=== PATIENT | male | born 1940 | race Caucasian/White ===

== ENCOUNTER 2022-11-03 13:30 | Emergency (ER) | payer MEDICARE, OTHER, SELFPAY ==
[2022-11-03] VITALS (11 sets, daily range): BP systolic 115–126; BP diastolic 76–86; PULSE 72–86; RESP 28; TEMP 35.9; O2SAT 94–97; BMI 34.5
--- NOTE | 2022-11-03 19:43 | ED_ITS ---
HPI - General Adult General Date Seen: 11/03/22 Chief complaint: Allergic Reaction Stated complaint: hives and wheezing recently started steroid Time Seen by Provider: 11/03/22 14:07 Source: patient and RN notes reviewed Mode of arrival: ambulatory Limitations: no limitations History of Present Illness HPI narrative: Patient is an 82-year-old male who presents to the ER on recommendation of the clinic for hives and some wheezing. He tells me that he has a history of bronchitis and recent cough/upper respiratory infection, had been seen in clinic last month and started on an antibiotic which by my review appears to have been a cephalosporin. He had completed that and then presented to clinic again a couple days ago for recheck because he was still coughing. At that time, he was started on prednisone as well as doxycycline, which he has been taking for the past 2 days. Today he broke out in hives, called the clinic and was noted to be wheezing so they recommended that he come here. He took Benadryl on the way, and on arrival here was feeling improved. He has not had any further wheezing, still has the hives although he is less itchy than he was. Nursing reported that he at 1 point was noting some throat swelling, but he does not give me that history. Denies difficulty breathing or swallowing. Denies prior history of antibiotic allergies, but does say that he has had hives in the past, which as best they can tell have been related to maple syrup. He says his cough has been persistent but he thinks overall gradually improving. He does think over the past couple of days he has been feeling better, whether that is due to the steroid or the doxycycline he does not know. He hasa remote smoking history, quit 1983. It is not clear to me that he carries a diagnosis of COPD, though he says that he was treated for chronic bronchitis. He has not run fevers recently. Cough at this point is dry. No chest pain, no significant shortness of breath. Related Data Home Medications Medication Instructions Recorded Confirmed cholecalciferol (vitamin D3) 25 1,000 unit PO DAILY 04/26/22 11/03/22 mcg (1,000 unit) tablet latanoprost 0.005 % eye drops 1 drp ophthalmic (eye) .Bedtime 04/26/22 11/03/22 cefuroxime axetil 500 mg tablet 500 mg PO Q12H 11/03/22 11/03/22 Previous Rx's Medication Instructions Recorded furosemide 20 mg tablet 20 mg PO QAM #90 tabs 10/13/22 lisinopril 20 mg tablet 20 mg PO QDAY #90 tabs 10/13/22 amlodipine 5 mg tablet 5 mg PO DAILY #90 tabs 11/01/22 digoxin 250 mcg (0.25 mg) tablet 250 mcg PO QDAY #90 tabs 11/01/22 metformin 500 mg tablet,extended 1,000 mg PO DAILY #180 tabs 11/01/22 release 24 hr metoprolol succinate 50 mg 50 mg PO BID #180 tabs 11/01/22 tablet,extended release 24 hr omeprazole 20 mg capsule,delayed 20 mg PO DAILY #90 caps 11/01/22 release prednisone 20 mg tablet 20 mg PO BID #14 tabs 11/01/22 simvastatin 20 mg tablet 20 mg PO .Bedtime #90 tabs 11/01/22 warfarin 5 mg tablet 5 mg PO .UD #120 tabs 11/01/22 Allergies Allergy/AdvReac Type Severity Reaction Status Date / Time doxycycline Allergy Severe Hives Verified 11/03/22 19:50 atorvastatin AdvReac Unknown Joint Pain Verified 11/03/22 13:45 Review of Systems Status of ROS: Reports: 10 or more systems reviewed and unremarkable except as noted in History and below [facility] Surgical History Status post cardiac pacemaker procedure Status post carpal tunnel release Status post cataract extraction Status post cholecystectomy Status post coronary artery stent placement Status post tonsillectomy Social History Smoking Status: Former smoker What tobacco products do you use: cigarettes Smoking quit date/years: >15 years ago Do you use any of these nicotine containing products: None Second hand tobacco smoke exposure: No How often do you have a drink containing alcohol: monthly or less AUDIT-C Alcohol total score: 1 Non-prescribed substance use: denies use Exam Narrative: Exam Narrative: Vital signs as noted above. In general, an alert, well-appearing patient. Breathing easily. Head: Normocephalic, atraumatic. Eyes: Pupils are equal reactive. Extraocular movements are full. Conjunctivae are normal. ENT: Mucous membranes are moist. Throat is normal. No edema. Neck: Supple without lymphadenopathy. No stridor. Heart: Regular rate and rhythm. No murmur or rub. Lungs: Clear bilaterally. No increased work of breathing, crackles or wheezes. Abdomen: Soft and nontender. No organomegaly. Extremities: Well perfused. No edema. No calf tenderness. Pulses intact. Neurologic: Patient is alert and oriented to person and place. Speech is fluent. Face is symmetric. Moves all extremities equally. Affect: Normal. Skin: Warm and dry. Well perfused. Large hives scattered over his right abdomen and flank, upper chest. Const: Vital Signs, click to edit/add: Vital Signs - 24 hr 11/03/22 13:41 11/03/22 14:24 11/03/22 14:30 Temperature 96.7 F L Pulse Rate 86 72 Pulse Rate [Pulse Oximeter] 81 Respiratory Rate 28 H Blood Pressure Blood Pressure [Ri ght Upper Arm] 126/76 Pulse Oximetry 95 97 97 Oxygen Delivery Me thod Room Air 11/03/22 14:31 11/03/22 14:45 11/03/22 15:00 Temperature Pulse Rate 81 83 84 Pulse Rate [Pulse Oximeter] Respiratory Rate Blood Pressure 115/86 Blood Pressure [Ri ght Upper Arm] Pulse Oximetry 96 95 94 Oxygen Delivery Me thod 11/03/22 15:02 11/03/22 15:03 11/03/22 15:15 Temperature Pulse Rate 79 84 82 Pulse Rate [Pulse Oximeter] Respiratory Rate Blood Pressure 125/77 Blood Pressure [Ri ght Upper Arm] Pulse Oximetry 96 96 95 Oxygen Delivery Me thod 11/03/22 15:30 11/03/22 15:39 Temperature 96.7 F L Pulse Rate 85 Pulse Rate [Pulse Oximeter] 81 Respiratory Rate 28 H Blood Pressure Blood Pressure [Ri ght Upper Arm] 126/76 Pulse Oximetry 97 Oxygen Delivery Me thod Course Course Hospital Course: In the emergency department, we really just observed. He does not have any a irway or circulatory difficulties, so I did not give epinephrine. We watched him for a couple of hours and he had no further difficulties. His hives did not resolved but they did improve significantly and the itching was largely resolved. For now, I am recommending to him that we just discontinue the doxycycline see how he does on the prednisone alone. He has already completed 1 course of antibiotic and I suspect at this point that his symptoms are more inflammatory rather than bacterial. If in a couple of days he feels like he really needs that extra antibiotic, he can call Dr. Dillard and they can decide what to put him on next, azithromycin might be a reasonable choice to cover for atypicals. In the meantime, will have him continue with the prednisone and I have asked him to keep taking an antihistamine on a scheduled basis for the next couple of days as well, either Benadryl or Zyrtec. Also discussed that if at any time he has recurrence of wheezing, develops any breathing difficulties, swelling, or simply has uncontrolled hives, he can return to the emergency department for re-evaluation. Doxycycline listed as an allergy. Vital Signs Vital signs: Initial Vital Signs Temperature 96.7 F L 11/03/22 13:41 Temperature Source Temporal Artery Scan 11/03/22 13:41 Pulse Rate 81 11/03/22 13:41 Respiratory Rate 28 H 11/03/22 13:41 Blood Pressure 126/76 11/03/22 13:41 Blood Pressure Mean 92 11/03/22 13:41 Blood Pressure Position Sitting 11/03/22 13:41 Pulse Oximetry 95 11/03/22 13:41 Oxygen Delivery Method 11/03/22 13:41 Vital Signs Temperature 96.7 F L 11/03/22 13:41 Pulse Rate 81 11/03/22 13:41 Respiratory Rate 28 H 11/03/22 13:41 Blood Pressure 126/76 11/03/22 13:41 Pulse Oximetry 95 11/03/22 13:41 Oxygen Delivery Method 11/03/22 13:41 Temperature 96.7 F L 11/03/22 15:39 Pulse Rate 81 11/03/22 15:39 Respiratory Rate 28 H 11/03/22 15:39 Blood Pressure 126/76 11/03/22 15:39 Pulse Oximetry 97 11/03/22 15:30 Oxygen Delivery Method 11/03/22 13:41 Discharge Plan Discharge Clinical Impression: Allergic reaction Patient Disposition: Home, Self-Care Condition: Improved Instructions: Antibiotic Medication Allergy (ED) Additional Instructions: Continue prednisone as prescribed. Take an antihistamine such as Benadryl 3 to 4 times a day, or Zyrtec (cetirizine) 1 to 2 times a day for the next 2-3 days. For now, let us see how you do just on the prednisone. If you decide you would like to add an antibiotic back in, you can discuss with Dr. Dillard by phone in a couple of days. Return at any time to the ER for acute worsening symptoms such as difficulty breathing, wheezing, swelling in your mouth or throat. Prescriptions: No Action cholecalciferol (vitamin D3) 25 mcg (1,000 unit) tablet 1,000 unit PO DAILY latanoprost 0.005 % drops 1 drp ophthalmic (eye) .Bedtime lisinopril 20 mg tablet 20 mg PO QDAY Qty: 90 3RF furosemide 20 mg tablet 20 mg PO QAM Qty: 90 3RF prednisone 20 mg tablet 20 mg PO BID Qty: 14 0RF amlodipine 5 mg tablet 5 mg PO DAILY Qty: 90 3RF digoxin 250 mcg (0.25 mg) tablet 250 mcg PO QDAY Qty: 90 3RF metformin 500 mg tablet extended release 24 hr 1,000 mg PO DAILY Qty: 180 3RF metoprolol succinate 50 mg tablet extended release 24 hr 50 mg PO BID Qty: 180 3RF omeprazole 20 mg capsule,delayed release(DR/EC) 20 mg PO DAILY Qty: 90 3RF simvastatin 20 mg tablet 20 mg PO .Bedtime Qty: 90 3RF warfarin 5 mg tablet 5 mg PO .UD Qty: 120 8RF Protocol: Dose Management Condition: Sunday Dose/Route: 5 % Instruction: 1 x 5 % tablet Condition: Sunday Dose/Route: 7.5 % Instruction: 1.5 x 5 % tablets Condition: Sunday Dose/Route: 5 % Instruction: 1 x 5 % tablet Condition: Sunday Dose/Route: 5 % Instruction: 1 x 5 % tablet Condition: Dose/Route: 5 % Instruction: 1 x 5 % tablet Condition: Sunday Dose/Route: 5 % Instruction: 1 x 5 % tablet Condition: Sunday Dose/Route: 5 % Instruction: 1 x 5 % tablet Protocol Text: Adjustment Start Date: Sunday09/15/22 INR Value: 2.6 INR Date: 09/15/22 Recheck Date: 10/15/22 Rx Instructions: [place]ane 7.5 MG, M 5 MG, Tu 7.5 MG, W 5 MG, Th 7.5 MG, F 5 MG, Sa 5 MG cefuroxime axetil 500 mg tablet 500 mg PO Q12H Label Comments: TAKE 1 TABLET BY MOUTH TWICE DAILY Follow Up/Referrals: Tray Duvall MD [Primary Care Provider] - Stand Alone Forms: [employer] Info Instructions
== END 2022-11-03 15:39 | disposition home or self-care (01) ==
PROVIDERS: Emergency Provider Emergency Medicine; PCP Family Medicine
DX: R06.2 Wheezing (principal); T36.95XA Adverse effect of unspecified systemic antibiotic, initial encounter
CPT/HCPCS: 99283; 99284

== ENCOUNTER 2022-11-15 15:31 | Outpatient (CLI) | payer MEDICARE, OTHER, SELFPAY ==
[2022-11-15 14:22] LABS: Chloride* 105 mmol/L (96-114); Potassium* 4.9 mmol/L (3.6-5.1); Sodium* 138 mmol/L (135-149)
[2022-11-15 14:25] LABS: Blood Urea Nitrogen* 21 mg/dL (7-30); Carbon Dioxide* 23 mmol/L (20-32); Cholesterol* 157 mg/dL (90-199); Estimated Glomerular Filt Rate 75 ml/min; Glucose* 153 mg/dL (60-115); Triglycerides* 337 mg/dL (40-149)
[2022-11-15 14:26] LABS: Calcium* 9.2 mg/dL (8.4-10.6); HDL Cholesterol* 34 mg/dL (>=40); LDL Cholesterol Calculated 56 mg/dL (<100)
== END 2022-11-15 15:32 | disposition home or self-care (01) ==
PROVIDERS: PCP Family Medicine; Visit Provider Family Medicine
DX: I10 Essential (primary) hypertension (principal); E78.5 Hyperlipidemia, unspecified
CPT/HCPCS: 80048; 80061

== ENCOUNTER 2023-01-30 12:09 | Outpatient (CLI) | payer MEDICARE, OTHER, SELFPAY | END 2023-01-30 12:10 | disposition home or self-care (01) | PROVIDERS: PCP Family Medicine; Visit Provider Family Medicine | DX: R19.7 Diarrhea, unspecified (principal) | CPT/HCPCS: 80053; 83690; 85651 ==

== ENCOUNTER 2023-02-01 09:13 | Outpatient (CLI) | payer MEDICARE, OTHER, SELFPAY | END 2023-02-01 09:14 | disposition home or self-care (01) | LOC: NFLDREF 21:16 | PROVIDERS: PCP Family Medicine; Referring Provider Family Medicine; Visit Provider Family Medicine | DX: R19.7 Diarrhea, unspecified (principal) | CPT/HCPCS: 87045; 87046; 87427; 87493 ==

== ENCOUNTER 2023-12-03 12:42 | Outpatient (CLI) | payer MEDICARE, OTHER, SELFPAY ==
--- OUTSIDE RECORDS SUMMARY | 2023-12-03 12:49 | XMS_ITS | Encounter Summary ---
Author Name Unknown Organization [facility] Address [address] [place] [address] Care Team Providers Care Video Systems Engineer Name Role Phone Unavailable Primary Care Provider Naviabl e Encounter Details Date Type Department Care Team (Latest Contact Info) Description 01/18/2023 10:15 AM CDT - 01/18/2023 11:59 PM CDT Hospital Encounter Department of Cardiovascular Diseases in [place], [place] [address] [place] [phone] Yung Celis M.D. [address] [phone] Aftercare Cardiac Pacemaker Discharge Disposition: Home or Self Care Social History Tobacco Use Types Packs/Day Years Used Date Smoking Tobacco: Never Assessed Nutrition Answer Date Recorded Nutrition: EVOO Fat Source Unknown 12/21 Nutrition: Servings of Fruits/Vegetables per Day Not on file 12/21/2020 Dental Answer Date Recorded Dental: Regular Dentist Unknown 12/21/19 21 Sex and Gender Information Value Date Recorded Sex Assigned at Not on file Gender Identity Not on file Sexual Orientation Not on file documented as of this encounter Plan of Treatment Not on file documented as of this encounter Procedures Procedure Name Priority Date/Time Associated Diagnosis Comments PACER DUAL CHAMBER INTERROGATION WITH PROGRAMMING Routine 01/18/2023 3:04 PM CDT Aftercare Cardiac Pacemaker documented in this encounter Results * PACER DUAL CHAMBER INTERROGATION WITH PROGRAMMING (01/18/2023 3:04 PM CDT) Narrative CV OPTIMA - 01/23/2023 8:20 AM CDT This study was read by an external provider and scanned to the patient's chart. Please launch the scanned document link to view the full report. Yung Celis M.D. CV IMPLANTABLE CARDI AC DEVICE CV OPTIMA NA documented in this encounter Visit Diagnoses Diagnosis Aftercare Cardiac Pacemaker documented in this encounter
--- OUTSIDE RECORDS SUMMARY | 2023-12-03 12:49 | XMS_ITS | Referral Summary ---
Author Name Unknown Organization [facility] Address [address] [place] [address] Care Team Providers Care Stone Crusher Operator Name Role Phone Unavailable Primary Care Provider Unavailabl e Source Comments Patient records contain information from all sites at [facility]. For routine questions regarding patient records, call [phone] during business hours, M-F 8:00 AM - 5:00 PM Central Time. Record requests for emergency care only can be directed to [phone] at any time.[facility] Social History Tobacco Use Types Packs/Day Years [...] on file Sexual Orientation Not on file Plan of Treatment Not on file
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
--- OUTSIDE RECORDS SUMMARY | 2023-12-03 12:49 | XMS_ITS | Clinical Summary ---
Author Name Unknown Organization [facility] Address [address] [place] [address] Care Team Providers Care Computer Technical Support Specialist Name Role Phone Unavailable Primary Care Provider Unavailabl e Source Comments Patient records contain information from all sites at [facility]. For routine questions regarding patient records, call [phone] during business hours, M-F 8:00 AM - 5:00 PM Central Time. Record requests for emergency care only can be directed to [phone] at any time.[facility] Social History Tobacco Use Types Packs/Day [...] Orientation Not on file Plan of Treatment Health Maintenance Due Date Last Done Comments Hepatitis B Vaccines (1 of 3 - Risk 3-dose series) 2000 Zoster Vaccines (2 of 3) 12/02/2010 10/07/2010 Depression Screening (Annual PHQ-2) 10/29/2023 Fall Risk Screen (Annual) 10/29/2023 DTaP,Tdap,and Td Vaccines (2 - Td or Tdap) 12/12/2026 12/12/2016, 08/07/2006 Pneumococcal vaccine (65+ years) Completed 11/10/2015, 12/20/2010, 12/15/2003 COVID-19 Vaccine Completed 08/28/2023, , 09/08/2021, Additional history exists Influenza Vaccine Completed 08/28/2023, , 08/04/2021, Additional history exists
--- OUTSIDE RECORDS SUMMARY | 2023-12-03 12:49 | XMS_ITS ---
Author Name Unknown Organization [facility] Address [address] [place] [address] Care Team Providers Care Neuroscience Director Na Name Role Phone Unavailable Unavailable Unavailable Surgery Details Not on file Complications Check Surgery Details section. Procedure Estimated Blood Loss Check Surgery Details section. Procedure Findings Check Surgery Details section. Procedure Specimens Taken Check Surgery Details section.
== END 2023-12-03 12:43 | disposition home or self-care (01) ==
LOC: RAD 12:44
PROVIDERS: PCP Family Medicine; Visit Provider Internal Medicine
DX: I48.91 Unspecified atrial fibrillation (principal); I25.10 Atherosclerotic heart disease of native coronary artery without angina pectoris; I51.7 Cardiomegaly; I07.1 Rheumatic tricuspid insufficiency
CPT/HCPCS: 93306

== ENCOUNTER 2023-12-14 12:16 | Outpatient (CLI) | payer MEDICARE, OTHER, SELFPAY ==
--- OUTSIDE RECORDS SUMMARY | 2023-12-14 12:20 | XMS_ITS | Encounter Summary ---
Author Name Unknown Organization [facility] Address [address] [place] [address] Care Team Providers Care Blueprinting Machine Operator Name Role Phone Unavailable Primary Care Provider Naviabl e Encounter Details Date Type Department Care Team (Latest Contact Info) Description 01/18/2023 10:15 AM CDT - 01/18/2023 11:59 PM CDT Hospital Encounter Department of Cardiovascular Diseases in [place], [place] [address] [place] [phone] Yung Celis M.D. [address] [phone] Aftercare Cardiac Pacemaker Discharge Disposition: [...]
--- OUTSIDE RECORDS SUMMARY | 2023-12-14 12:20 | XMS_ITS | Referral Summary ---
Author Name Unknown Organization [facility] Address [address] [place] [address] Care Team Providers Care Senior Office Assistant Name Role Phone Unavailable Primary Care Provider Unavailabl e Source Comments Patient records contain information from all sites at [facility]. For routine questions regarding patient records, call [phone] during business hours, M-F 8:00 AM - 5:00 PM Central Time. Record requests for emergency care only can be directed to [phone] at any time.[facility] Social History Tobacco Use Types Packs/Day Years [...]
--- OUTSIDE RECORDS SUMMARY | 2023-12-14 12:20 | XMS_ITS | Clinical Summary ---
Author Name Unknown Organization [facility] Address [place], [place] [address] Care Team Providers Care Center Hole Reamer Name Role Phone Sammy Garcia MD Primary Care Provider + Allergies Active Allergy Reactions Criticality Noted Date [...] 08/11/2018 Diverticulosis 08/11/2018 Carotid artery disease 08/11/2018 Encounters Date Type Department Care Team Description 12/13/2023 11:30 AM CHAIR FRAME BUILDER Office Visit [facility] [address] [place] [address] Catalino Villanueva MD Arrived 12/05/2023 Telephone [facility] [address] [place] [address] Dr [place] [address] Washington Peters MD Results 12/03/2023 1:00 PM CHAIR FRAME BUILDER Ancillary Procedure [facility] [address] [place] [address] from Last 3 Months Family History Medical History Relation Name Comments [...] Care Team (Late st Contact Info) Description 02/20/2024 2:00 PM CDT Cardiac Device Check [facility] [address] [place] [address] Health Maintenance Due Date Last Done Comments Pneumococcal series for age 65+ (1 of 2 - PCV) 1946 Tdap 1951 Depression screening for age 12+ 1952 BMI (ht and wt on same day) for age 18+ 1958 Tetanus booster 1960 Zoster (shingles) series for age 50+ (1 of 2) 1990 Medicare Wellness for age 65+ 2005 Influenza for age 65+ 06/29/2023 COVID-19 vaccine series Completed 08/28/20 23, 03/21/2022, 09/08/2021, Additional history exists Procedures Procedure Name Priority Date/Time Associated Diagnosis Comments ECHO TTE COMPLETE WO CONTRAST Routine 12/03/2023 1:39 PM CHAIR FRAME BUILDER A-fib (HC) from Last 3 Months Results * ECHO TTE COMPLETE WO CONTRAST (12/03/2023 1:39 PM CHAIR FRAME BUILDER) AORTIC VALVE MEAN PG 11 mmHg EJECTION FRACTION 43 % PEAK TR VELOCITY 2.8 m/s LVEDD 6.4 cm Anatomical Region Laterality Modality Ultrasound 12/03/2023 1:00 PM CHAIR FRAME BUILDER Narrative 12/03/2023 2:07 PM CHAIR FRAME BUILDER ECHOCARDIOGRAM ALMAS STEVENS ?Accession#: ?? [id number] : ?1940 83 years Study Date: ?? 12/03/2023 1:00:02 PM Gender: M ? BP: ? 153/81 mmHg Height: 168.00 cm ? BSA: ?2.13 m? ? ? Weight: 105.00 kg ? Tech: ? MHR ?Referring MD: WASHINGTON PETERS Site: ? [facility] Reading Location: MOBILE OP Patient Location: Outpatient. Procedure: 2D, Color Doppler and Spectral Doppler. Indication for study: atrial fibrillation Cardiac Rhythm: Atrial fibrillation.Study quality: Fair. Final Impressions: 1. Moderately increased left ventricular size, mildly reduced global systolic function, calculated EF of 43 %. There is moderate global left ventricular hypokinesis. 2. Right ventricular cavity size is moderately enlarged, global systolic RV function is mildly reduced. 3. Moderately enlarged left and right atrium. 4. No pericardial effusion. 5. The aortic valve is not well visualized and sclerotic, mild stenosis and no regurgitation. 6. Mildly increased estimated pulmonary pressures by tricuspid regurgitation velocity and right atrial pressure (32 mmHg plus RAP). Comparison There are no prior studies on this patient for comparison purposes. Chamber Sizes and Function Moderately increased left ventricular size, mildly increased wall thickness, mildly reduced global systolic function, calculated EF of 43 %. There is moderate global left ventricular hypokinesis. Left atrial size is moderately enlarged. Right ventricular cavity size is moderately enlarged, global systolic RV function is mildly reduced. The right atrium is moderately enlarged. Right atrial volume index is 18 ml/m? ? ?. Right atrial area is 22 cm? ? ?. The pulmonary artery is of normal size and origin. The sinus of Valsalva is normal for age/sex/bsa. The ascending aorta is normal for age/sex/bsa. Valves, RV Pressures and Diastolic Function The aortic valve is not well visualized and sclerotic, mild stenosis and no regurgitation. The mitral valve is normal in structure, trace mitral regurgitation. Indeterminate pattern of LV diastolic filling. The tricuspid valve is normal in structure. Tricuspid regurgitation is mild regurgitation. The tricuspid regurgitant velocity is 2.8 m/s, the estimated right ventricular systolic pressure is 32 mmHg plus right atrial pressure. There is mildly increased estimated pulmonary pressure by tricuspid regurgitation velocity and right atrial pressure. The pulmonic valve is normal. No pulmonary regurgitation. Masses, Effusion, Shunts There is no pericardial effusion. The inferior vena cava is normal sized, respiratory size variation greater than 50%. No left to right shunting was detected by limited color flow Doppler interrogation of the interatrial septum. MEASUREMENTS AND CALCULATIONS 2-D Measurements and LV Function: LVID (d) ?6.4 cm Planimetered EF 43 % LVID (s) ?5.8 cm LV FS% (2D) ? 10 % IVS (d) ? 1.4 cm LVOT diameter ?? 2.4 cm LVPW (d) ?1.6 cm HR ?75 bpm Ao Sinus ?3.5 cm LA Vol index ?47 ml/m2 Ao ST junct 2.9 cm RA Vol index ?18 ml/m2 Asc Ao ?3.9 cm RA area ? 22 cm? ? ? LA ?6.0 cm RV Max 4C (d) ?? 3.6 cm Aortic Valve: Vmax ? 2.1 m/s ??MARILEE (V) ?? 1.48 cm? ? ? VTI ?0.43 m ?? MARILEE (I) ?? 1.51 cm? ? ? LVOT V max 0.7 m/s ??Max PG ?17 mmHg LVOT VTI ?? 0.15 m ?? Mean PG ?? 11 mmHg SV ? 65 ml ?Dim Index 0.34 SV index ?? 30 ml/m? ? ? CO ?4.9 l/min ?CI ?2.3 l/min/m? ? ? Mitral Valve: MR TVI 1.70 m Tricuspid Valve and estimated PA pressures: TR Vmax 2.8 m/s TAPSE 1.3 cm TR maxG 32 mmHg . This study was interpreted by an [facility] accredited facility. ??Final ?? Procedure Note Sammy Alvarado MD - 12/03/2023 ECHOCARDIOGRAM ALMAS STEVENS : 1940 83 years Study Date: 12/03/2023 1:00:02 PM Gender: M BP: 153/81 mmHg Height: 168.00 cm BSA: 2.13 m? ? ? Weight: 105.00 kg Tech: R Referring MD: WASHINGTON PETERS Site: [facility] Reading Location: MOBILE OP Patient Location: Outpatient. Procedure: 2D, Color Doppler and Spectral Doppler. Indication for study: atrial fibrillation Cardiac Rhythm: Atrial fibrillation.Study quality: Fair. Final Impressions: 1. Moderately increased left ventricular size, mildly reduced globalsystolic function, calculated EF of 43 %. There is moderate global leftventricular hypokinesis. 2. Right ventricular cavity size is moderately enlarged, global systolicRV function is mildly reduced. 3. Moderately enlarged left and right atrium. 4. No pericardial effusion. 5. The aortic valve is not well visualized and sclerotic, mild stenosisand no regurgitation. 6. Mildly increased estimated pulmonary pressures by tricuspidregurgitation velocity and right atrial pressure (32 mmHg plus RAP). Comparison There are no prior studies on this patient for comparison purposes. Chamber Sizes and Function Moderately increased left ventricular size, mildly increased wallthickness, mildly reduced global systolic function, calculated EF of 43 %.There is moderate global left ventricular hypokinesis. Left atrial size ismoderately enlarged. Right ventricular cavity size is moderately enlarged,global systolic RV function is mildly reduced. The right atrium ismoderately enlarged. Right atrial volume index is 18 ml/m? ? ?. Right atrialarea is 22 cm? ? ?. The pulmonary artery is of normal size and origin. Thesinus of Valsalva is normal for age/sex/bsa. The ascending aorta is normalfor age/sex/bsa. Valves, RV Pressures and Diastolic Function The aortic valve is not well visualized and sclerotic, mild stenosis andno regurgitation. The mitral valve is normal in structure, trace mitralregurgitation. Indeterminate pattern of LV diastolic filling. Thetricuspid valve is normal in structure. Tricuspid regurgitation is mildregurgitation. The tricuspid regurgitant velocity is 2.8 m/s, theestimated right ventricular systolic pressure is 32 mmHg plus right atrialpressure. There is mildly increased estimated pulmonary pressure bytricuspid regurgitation velocity and right atrial pressure. The pulmonicvalve is normal. No pulmonary regurgitation. Masses, Effusion, Shunts There is no pericardial effusion. The inferior vena cava is normal sized,respiratory size variation greater than 50%. No left to right shunting wasdetected by limited color flow Doppler interrogation of the interatrialseptum. MEASUREMENTS AND CALCULATIONS 2-D Measurements and LV Function: LVID (d) 6.4 cm Planimetered EF 43 % LVID (s) 5.8 cm LV FS% (2D) 10 % IVS (d) 1.4 cm LVOT diameter 2.4 cm LVPW (d) 1.6 cm HR 75 bpm Ao Sinus 3.5 cm LA Vol index 47 ml/m2 Ao ST junct 2.9 cm RA Vol index 18 ml/m2 Asc Ao 3.9 cm RA area 22 cm? ? ? LA 6.0 cm RV Max 4C (d) 3.6 cm Aortic Valve: Vmax 2.1 m/s MARILEE (V) 1.48 cm? ? ? VTI 0.43 m MARILEE (I) 1.51 cm? ? ? LVOT V max 0.7 m/s Max PG 17 mmHg LVOT VTI 0.15 m Mean PG 11 mmHg SV 65 ml Dim Index 0.34 SV index 30 ml/m? ? ? CO 4.9 l/min CI 2.3 l/min/m? ? ? Mitral Valve: MR TVI 1.70 m Tricuspid Valve and estimated PA pressures: TR Vmax 2.8 m/s TAPSE 1.3 cm TR maxG 32 mmHg . This study was interpreted by an [facility] accredited facility. Final Washington Peters MD ECHO ORD from Last 3 Months Advance Directives Latest Code Status on File Code Status Date Activated Date Inactivated Comments Full Code 05/29/2022 11:15 AM 05/29/2022 4:08 PM Full c ode as previously documented. Will discuss with patient code status on arrival to [facility]. Question Answer Comments Code Status Discussion: Other Code Status History Code Status Date Activated Date Inactivated Comments Full Code 08/11/2018 12:28 PM 08/14/2018 3:02 PM Question Answer Comments Code Status Discussion: Discussed Full Code 11/27/2012 6:38 AM 11/27/2012 12:00 PM Care Teams Center Hole Reamer Relationship Specialty Start Date End Date Sammy Garcia MD [address] [place] [address] PCP - General Family Practice 12/13/23
--- OUTSIDE RECORDS SUMMARY | 2023-12-14 12:20 | XMS_ITS ---
Author Name Unknown Organization [facility] Address [address] [place] [address] Care Team Providers Care Bag Bailer Name Role Phone Unavailable Unavailable Unavailable Surgery Details Not on file Complications Check Surgery Details section. Procedure Estimated Blood Loss Check Surgery Details section. Procedure Findings Check Surgery Details section. Procedure Specimens Taken Check Surgery Details section.
--- OUTSIDE RECORDS SUMMARY | 2023-12-14 12:20 | XMS_ITS | Clinical Summary ---
Author Name Unknown Organization [facility] Address [address] [place] [address] Care Team Providers Care Director Of Early Childhood Education Name Role Phone Unavailable Primary Care Provider Unavailabl e Source Comments Patient records contain information from all sites at [facility]. For routine questions regarding patient records, call [phone] during business hours, M-F 8:00 AM - 5:00 PM Central Time. Record requests for emergency care only can be directed to [phone] at any time.[facility] Social History Tobacco Use Types Packs/Day Years [...]
== END 2023-12-14 12:17 | disposition home or self-care (01) ==
PROVIDERS: PCP Family Medicine; Visit Provider Family Medicine
DX: E78.5 Hyperlipidemia, unspecified (principal); I10 Essential (primary) hypertension
CPT/HCPCS: 80048; 80061; 84460

== ENCOUNTER 2024-04-16 13:34 | Outpatient (CLI) | payer MEDICARE, OTHER, SELFPAY ==
--- OUTSIDE RECORDS SUMMARY | 2024-04-24 15:07 | XMS_ITS | Referral Summary ---
Author Organization [facility] Address [address] [place] [address] Care Team Providers Care Urban Renewal Manager Name Role Phone Unavailable Primary Care Provider Unavailabl e Source Comments Patient records contain information from all sites at [facility]. For routine questions regarding patient records, call [phone] during business hours, M-F 8:00 AM - 5:00 PM Central Time. Record requests for emergency care only can be directed to [phone] at any time.[facility] Encounters Date Type Department Care Team Description 02/20/2024 1:06 PM CDT - 02/20/2024 11:59 PM CDT Hospital Encounter Department of Cardiovascular Diseases in [place], [place] [address] [place] [address] Yung Celis M.D. Aftercare Cardiac Pacemaker Discharge Disposition: Home or Self Care from Last 3 Months Social History Tobacco Use Types Packs/Day Years [...] file Plan of Treatment Not on file Procedures Procedure Name Priority Date/Time Associated Diagnosis Comments ICD DUAL CHAMBER INTERROGATION WITH PROGRAMMING Routine 02/20/2024 4:35 PM CDT Aftercare Cardiac Pacemaker from Last 3 Months Results * ICD DUAL CHAMBER INTERROGATION WITH PROGRAMMING (02/20/2024 4:35 PM CDT) Narrative CV OPTIMA - 02/21/2024 3:10 PM CDT This study was read by an external provider and scanned to the patient's chart. Please launch the scanned document link to view the full report. Yung Celis M.D. CV IMPLANTABLE CARDI AC DEVICE CV OPTIMA NA from Last 3 Months
--- OUTSIDE RECORDS SUMMARY | 2024-04-24 15:07 | XMS_ITS | Clinical Summary ---
Author Organization [facility] Address [address] [place] [address] Care Team Providers Care Information Technology Technician Name Role Phone Unavailable Primary Care Provider Unavailabl e Source Comments Patient records contain information from all sites at [facility]. For routine questions regarding patient records, call [phone] during business hours, M-F 8:00 AM - 5:00 PM Central Time. Record requests for emergency care only can be directed to [phone] at any time.[facility] Encounters Date Type Department Care Team Description 02/20/2024 1:06 PM CDT - 02/20/2024 11:59 PM CDT Hospital Encounter Department of Cardiovascular Diseases in [place], [place] [address] [place] [address] Yung Celis M.D. Aftercare Cardiac [...] Health Maintenance Due Date Last Done Comments Zoster Vaccines (2 of 3) 12/02/2010 10/07/2010 Depression Screening (Annual PHQ-2) 10/29/2023 Fall Risk Screen (Annual) 10/29/2023 COVID-19 Vaccine (2022-11 4 season) 2023 08/28/2023, 03/21/2022, 09/08/2021, Additional history exists DTaP,Tdap,and Td Vaccines (2 - Td or Tdap) 12/12/2026 12/12/2016, 08/07/2006 Pneumococcal vaccine (65+ years) Completed 11/10/2015, 12/20/2010, 12/15/2003 Influenza Vaccine Completed 08/28/2023, , 08/04/2021, Additional history exists Procedures Procedure Name Priority [...]
--- OUTSIDE RECORDS SUMMARY | 2024-04-24 15:08 | XMS_ITS | Encounter Summary ---
Author Organization [facility] Address [address] [place] [address] Care Team Providers Care Technician Biological Health Name Role Phone Unavailable Primary Care Provider Unavailabl e Encounter Details Date Type Department Care Team (Latest Contact Info) Description 02/20/2024 1:06 PM CDT - 02/20/2024 11:59 PM CDT Hospital Encounter Department of Cardiovascular Diseases in [place], [place] [address] [place] [phone] Yung Celis M.D. [address] [address] Aftercare Cardiac Pacemaker Discharge Disposition: [...] 02/20/2024 4:35 PM CDT Aftercare Cardiac Pacemaker documented in this encounter Results * ICD DUAL CHAMBER INTERROGATION WITH [...]
--- OUTSIDE RECORDS SUMMARY | 2024-04-24 15:08 | XMS_ITS ---
Author Organization [facility] Address [address] [place] [address] Care Team Providers Care Stone Carver Name Role Phone Unavailable Unavailable Unavailable Surgery Details Not on file Complications Check Surgery Details section. Procedure Estimated Blood Loss Check Surgery Details section. Procedure Findings Check Surgery Details section. Procedure Specimens Taken Check Surgery Details section.
--- OUTSIDE RECORDS SUMMARY | 2024-04-24 15:08 | XMS_ITS | Clinical Summary ---
Author Organization [facility] Address [place], [place] [address] Care Team Providers Care Botany Technician Name Role Phone Sammy Garcia MD Primary [...] by mouth once daily with a meal. Active simvastatin (ZOCOR) 20 mg tablet Take 20 mg by mouth at bedtime. Active amLODIPine (NORVASC) 5 mg tablet Take 5 mg by mouth once daily. Active cholecalciferol (VITAMIN D3) 1,000 unit tablet Take 1,000 Units by mouth once daily. Active latanoprost (XALATAN) 0.005 % ophthalmic solution Place 1 Drop into right eye at bedtime. Active nitroglycerin (NITROSTAT) 0.[address] 0.4 mg under the tongue every 5 minutes if needed. Active warfarin (COUMADIN) 5 mg tablet Take by mouth once daily. Takes 5mg 4 days per week and 7.5mg the other 3 days per week Active omeprazole (PRILOSEC) 20 mg Delayed-Release capsule Take 20 mg by mouth once daily before a meal. Active acetaminophen (TYLENOL EXTRA STRGTH) 500 mg tabletIndications:P ain Take 1-2 tablets by mouth every 6 hours if needed (For mild pain.). Max acetaminophen dose: 4000mg in 24 hrs. 08/14/2018 Active metoprolol succinate (Toprol XL) 50 [...] Care Team (Late st Contact Info) Description 05/22/2024 Cardiac Device Check [facility] [phone] Health Maintenance Due Date Last Done Comments Pneumococcal series for age 65+ (1 of 2 - PCV) 1946 Tdap 1951 Depression screening for age 12+ 1952 BMI (ht and wt on same day) for age 18+ 1958 Tetanus booster 1960 Zoster (shingles) series for age 50+ (1 of 2) 1990 Medicare Wellness for age 65+ 2005 COVID-19 vaccine series (2022- season) 2023 08/28/2023, 03/21/2022, 09/08/2021, Additional history exists Influenza for age 65+ 06/29/2024 Advance Directives * Full Code (Latest Code Status on File) Date Activated Date Inactivated Comments 05/29/2022 11:15 AM 05/29/2022 4:08 PM Full code as previously documented. Will discuss with patient code status on arrival to [facility]. Question Answer Comments Code Status Discussion: Other * Full Code Date Activated Date Inactivated Comments 08/11/2018 12:28 PM 08/14/2018 3:02 PM Question Answer Comments Code Status Discussion: Discussed * Full Code Date Activated Date Inactivated Comments 11/27/2012 6:38 AM 11/27/2012 12:00 PM Care Teams Botany Technician Relationship Specialty Start Date End Date Sammy Garcia MD [address] [place] [address] PCP - General Family Practice 12/13/23
== END 2024-04-16 13:35 | disposition home or self-care (01) ==
LOC: NFLDREF 04-24 15:06
PROVIDERS: PCP Family Medicine; Referring Provider Family Medicine; Visit Provider Family Medicine
DX: I48.0 Paroxysmal atrial fibrillation (principal); Z79.01 Long term (current) use of anticoagulants
CPT/HCPCS: 85610

== ENCOUNTER 2024-05-21 12:50 | Outpatient (CLI) | payer MEDICARE, OTHER, SELFPAY ==
--- OUTSIDE RECORDS SUMMARY | 2024-05-23 08:40 | XMS_ITS | Clinical Summary ---
Author Organization [facility] Address [address] [place] [address] Care Team Providers Care Gas Line Installer Name Role Phone Unavailable Primary Care Provider Unavailabl e Source Comments Patient records contain information from all sites at [facility]. For routine questions regarding patient records, call [phone] during business hours, M-F 8:00 AM - 5:00 PM Central Time. Record requests for emergency care only can be directed to [phone] at any time.[facility] Social History Tobacco Use Types Packs/Day Years [...] Fall Risk Screen (Annual) 10/29/2023 COVID-19 Vaccine (2022-2 4 season) 2023 08/28/2023, 03/21/2022, 09/08/2021, Additional history exists Influenza Vaccine (#1) 2024 , 08/21/2022, 08/04/2021, Additional history exists DTaP,Tdap,and Td Vaccines (2 - Td or Tdap) 12/12/2026 12/12/2016, 08/07/2006 Pneumococcal vaccine (65+ years) Completed 11/10/2015, 12/20/2010, 12/15/2003
--- OUTSIDE RECORDS SUMMARY | 2024-05-23 08:40 | XMS_ITS | Encounter Summary ---
Author Organization [facility] Address [address] [place] [address] Care Team Providers Care Medical Insurance Coding Specialist Name Role Phone Unavailable Primary Care Provider Unavailabl e Encounter Details Date Type Department Care Team (Latest Contact Info) Description 02/20/2024 1:06 PM CDT - 02/20/2024 11:59 PM CDT Hospital Encounter Department of Cardiovascular Diseases in [place], [place] [address] [place] [phone] Yung Celis M.D. [address] [address] Aftercare Cardiac Pacemaker Discharge Disposition: [...]
--- OUTSIDE RECORDS SUMMARY | 2024-05-23 08:40 | XMS_ITS ---
Author Organization [facility] Address [address] [place] [address] Care Team Providers Care Networking Technology Instructor Name Role Phone Unavailable Unavailable Unavailable Surgery Details Not on file Complications Check Surgery Details section. Procedure Estimated Blood Loss Check Surgery Details section. Procedure Findings Check Surgery Details section. Procedure Specimens Taken Check Surgery Details section.
--- OUTSIDE RECORDS SUMMARY | 2024-05-23 08:40 | XMS_ITS | Clinical Summary ---
Author Organization [facility] [facility] Address [place], [place] [address] Care Team Providers Care Revenue Settlements Administrator Name Role Phone Sammy Garcia MD Primary [...] Care Team (Late st Contact Info) Description 09/02/2024 Cardiac Device Check [facility] [phone] Health Maintenance Due Date Last Done Comments [...] with patient code status on arrival to [facility]. Question Answer Comments Code Status Discussion: Other * Full Code Date Activated Date Inactivated Comments 08/11/2018 12:28 PM 08/14/2018 3:02 PM Question Answer Comments Code Status Discussion: Discussed * Full Code Date Activated Date Inactivated Comments 11/27/2012 6:38 AM 11/27/2012 12:00 PM Care Teams Revenue Settlements Administrator Relationship Specialty Start Date End Date Sammy Garcia MD [address] [place] [address] PCP - General Family Practice 12/13/23
--- OUTSIDE RECORDS SUMMARY | 2024-05-23 08:40 | XMS_ITS | Referral Summary ---
Author Organization [facility] Address [address] [place] [address] Care Team Providers Care Lift Mechanic Name Role Phone Unavailable Primary Care Provider Unavailabl e Source Comments Patient records contain information from all sites at [facility]. For routine questions regarding patient records, call [phone] during business hours, M-F 8:00 AM - 5:00 PM Central Time. Record requests for emergency care only can be directed to [phone] at any time.[facility] Social [...]
== END 2024-05-21 12:51 | disposition home or self-care (01) ==
LOC: NFLDREF 05-23 08:38
PROVIDERS: PCP Family Medicine; Referring Provider Family Medicine; Visit Provider Family Medicine
DX: I48.91 Unspecified atrial fibrillation (principal); Z79.01 Long term (current) use of anticoagulants
CPT/HCPCS: 85610

== ENCOUNTER 2024-11-14 09:44 | Outpatient (CLI) | payer MEDICARE, OTHER, SELFPAY | END 2024-11-14 09:45 | disposition home or self-care (01) | LOC: RAD 09:48 | PROVIDERS: PCP Family Medicine; Visit Provider Internal Medicine Cardiovascular Disease | DX: I48.91 Unspecified atrial fibrillation (principal); I51.7 Cardiomegaly; I35.1 Nonrheumatic aortic (valve) insufficiency; I50.9 Heart failure, unspecified | CPT/HCPCS: 93306 ==

== ENCOUNTER 2024-11-27 10:39 | Outpatient (CLI) | payer MEDICARE, OTHER, SELFPAY | END 2024-11-27 10:40 | disposition home or self-care (01) | LOC: NFLDREF 12-01 04:00 | PROVIDERS: PCP Family Medicine; Referring Provider Family Medicine; Visit Provider Internal Medicine | DX: I48.91 Unspecified atrial fibrillation (principal) | CPT/HCPCS: 80048 ==

== ENCOUNTER 2024-12-10 11:51 | Outpatient (CLI) | payer MEDICARE, OTHER, SELFPAY | END 2024-12-10 11:52 | disposition home or self-care (01) | PROVIDERS: PCP Family Medicine; Visit Provider Family Medicine | DX: E78.2 Mixed hyperlipidemia (principal) | CPT/HCPCS: 80061; 84460 ==

== ENCOUNTER 2025-07-20 06:25 | Emergency (ER) | payer MEDICARE, OTHER, SELFPAY ==
[2025-07-20] VITALS (9 sets, daily range): BP systolic 134–162; BP diastolic 89–107; PULSE 65–83; RESP 15–24; TEMP 36.6; O2SAT 93–97; BMI 37.7
--- OUTSIDE RECORDS SUMMARY | 2025-07-20 06:27 | XMS_ITS | Clinical Summary ---
Author Organization [facility] Address [address] [place] [id number] Care Team Providers Care Air Quality Consultant Name Role Phone Sammy Garcia MD Primary Care Provider + Allergies Active Allergy Reactions Criticality Noted Date Comments Atorvastatin Calcium Other - Describe In Comment Field 09/01/2012 Wrist and shoulder pain Atorvastatin Myalgia 11/26/2012 Metoprolol Other - Describe In Comment Field 11/26/2012 Lowered heart rate into the 30's Medications metFORMIN (GLUCOPHAGE) 500 mg tablet Take 1,000 mg by mouth once daily with a meal. Active simvastatin (ZOCOR) 20 mg tablet Take 20 mg by mouth at bedtime. Active cholecalcifero l (VITAMIN D3) 1,000 unit tablet Take 1,000 [...] per week Active omeprazole (PRILOSEC) 20 mg Delayed-Releas e capsule Take 20 mg by mouth once daily before a meal. Active acetaminophen (TYLENOL EXTRA STRGTH) 500 mg tabletIndicati ons:Pain Take 1-2 tablets by mouth every 6 hours if needed (For mild pain.). Max acetaminophen dose: 4000mg in 24 hrs. 8 Active metoprolol succinate SR (Toprol XL) 200 mg Sustained-Rele ase tabletIndicati ons:PAF (paroxysmal atrial fibrillation) (HC) Take 1 Tablet (200 mg) by mouth once daily. 90 Tablet 3 5 Active lisinopriL (PRINIVIL; ZESTRIL) 40 mg tabletIndicati ons:Chronic heart failure with mildly reduced ejection fraction (HFmrEF, 41-49%) (HC) Take 1 Tablet (40 mg) by mouth once daily. 90 Tablet 3 5 Active Active Problems Problem Noted Date Diagnosed [...] Date Smoking Tobacco: Former Cigarettes Q uit: 1982 Smokeless Tobacco: Never Comments:1 pack per week Alcohol Use Standard Drinks/Week Comments Yes 3 (1 standard drink = 0.6 oz pur e alcohol) ~3x a week, ~4oz Financial Resource Strain Answer Date R ecorded Difficulty of Paying Living Expenses Not on file 10/29/2021 Difficulty of Paying Living Expenses Not on file 10/29/2021 Sex and Gender Information Value Date Recorded Sex Assigned at Not on file Legal Sex Male 1:24 PM [employer] Gender Identity Not on file Sexual Orientation Not on file Obstetrics History Last Filed Vital Signs Vital Sign Reading Time Taken Comments Blood Pressure 130/76 07/28/2022 9:59 AM CDT Pulse 79 07/28/2022 9:59 AM CDT Temperature 36.5 C (97.7 F) 05/29/2022 12:18 PM CDT Respiratory Rate 14 07/28/2022 9:59 AM CDT Oxygen Saturation 95% 05/29/2022 1:57 PM CDT Inhaled Oxygen Concentration - - Weight 109.8 kg (242 lb) 07/28/2022 9:59 AM CDT Height 170.2 cm (5' 7) 05/29/2022 11:25 AM CDT Body Mass Index 37.9 05/29/2022 11:25 AM CDT Plan of Treatment Health Maintenance Due Date Last Done Comments Tetanus booster 1951 Depression screening for age 12+ 1952 BMI (ht and wt on same day) for age 18+ 1958 Pneumococcal series for age 50+ (1 of 2 - PCV) 1959 Zoster (shingles) series for age 50+ (1 of 2) 1990 Medicare Wellness for age 65+ 2005 RSV vaccine for adults or (1 - 1-dose 75+ series) 2015 COVID-19 vaccine series ( season) 2025 09/19/2024, 08/28/2023, 03/21/2022, Additional history exists Influenza Vaccine (#1) 2025 Hepatitis B series for 19+ Aged Out N o longer eligible based on patient's age to complete this topic Insurance MEDICARE PART B HB ONLY MEDICA PRIME SOLUTION HB MEDICARE PART A HB ONLY MEDICA PRIME SOLUTIONS PB ONLY Advance Directives * Full Code (Latest Code Status on File) Date Activated Date Inactivated Comments 05/29/2022 11:15 AM 05/29/2022 4:08 PM Full code as previously documented. Will discuss with patient code status on arrival to [facility]. Question Answer Comments Code Status Discussion: Other * Full Code Date Activated Date Inactivated Comments 08/11/2018 12:28 PM 08/14/2018 3:02 PM Question Answer Comments Code Status Discussion: Discussed * Full Code Date Activated Date Inactivated Comments 11/27/2012 6:38 AM 11/27/2012 12:00 PM Care Teams Air Quality Consultant Relationship Specialty Start Date End Date Sammy Garcia MD [address] [place] [id number] PCP - General Family Practice 12/13/23
--- OUTSIDE RECORDS SUMMARY | 2025-07-20 06:27 | XMS_ITS | Clinical Summary ---
Author Organization [facility] Address [address] [place] [address] Care Team Providers Care Ensemble Member Name Role Phone Unavailable Primary Care Provider Unavailabl e Source Comments Patient records contain information from all sites at [facility]. For routine questions regarding patient records, call [phone] during business hours, M-F 8:00 AM - 5:00 PM Central Time. 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[employer] Gender Identity Not on file Sexual Orientation Not on file Plan of Treatment Health Maintenance Due Date Last Done Comments Zoster Vaccines (2 of 3) 12/02/2010 10/07/2010 RSV vaccine - (32-36 weeks) or 60+ years (1 - 1-dose 75+ series) 2015 Depression Screening (Annual PHQ-2) 10/29/2024 Fall Risk Screen (Annual) 10/29/2024 COVID-19 Vaccine (2023- season) 2025 09/19/2024, 08/28/2023, 03/21/2022, Additional history exists Influenza Vaccine (#1) 2025 , 08/28/2023, 08/21/2022, Additional history exists DTaP,Tdap,and Td Vaccines (2 - Td or Tdap) 12/12/2026 12/12/2016, 08/07/2006 Pneumococcal vaccine (50+ years) Completed 11/10/2015, 12/20/2010, 12/15/2003 IPV Vaccines Aged Out No longer eligi ble based on patient's age to complete this [place] [id number] MEDICARE MEDIC
--- NOTE | 2025-07-20 06:59 | CRLHL7_ITS ---
For Patients: As a result of the Cures Act, medical imaging exams and procedure reports are released immediately into your electronic medical record. You may view this report before your referring provider. If you have questions, please contact your health care provider. INDICATION: Chest pain. TECHNIQUE: Chest 2 views. COMPARISON: Chest radiograph 10/13/2022 FINDINGS: Cardiovascular and mediastinum: Cardiomegaly is stable. Mediastinum is stable. Left chest wall ICD with leads in the right shoulder appendage and right ventricle. Lungs and pleural spaces: Lungs are clear. No pneumothorax or pleural effusion. Bones and soft tissues: No significant findings. IMPRESSION: No acute findings. Dictated by Alicja Carbajal MD @ 07/20/2025 7:35:42 AM (Electronically Signed)
--- NOTE | 2025-07-20 07:02 | ED.GENADULT ---
HPI - General Adult General Chief complaint: Chest Pain <Liya Alvarez MD - Last Filed: 07/26/25 23:58> Stated complaint: chest pain, shortness of breath <Liya Alvarez MD - Last Filed: 07/26/25 23:58> Time Seen by Provider: 07/20/25 06:40 <Lyia Alvarez MD - Last Filed: 07/26/25 23:58> Source: patient <Liya Alvarez MD - Last Filed: 07/26/25 23:58> Mode of arrival: ambulatory <Liya Alvarez MD - Last Filed: 07/26/25 23:58> Limitations: no limitations <Liya Alvarez MD - Last Filed: 07/26/25 23:58> History of Present Illness HPI narrative: 85-year-old male presents to the emergency department for evaluation of chest pain for the past 2 weeks. It does not really seem exertional. It seems a little better in the afternoons. He is very vague about the description, simply that is substernal, 04/07 but seems to be worsening over the past 2 weeks. He has difficulty sleeping which he is uncertain if it is related to the chest pain but what I am gathering is that it seems like he is having orthopnea developing over the last 2 months, rapidly worsening over the last 2 weeks and is accompanied by a feeling of abdominal bloating and chest pain. He denies significant leg swelling but is admittedly evaluated in the railway patrol officer hours. No fever. No productive cough. No nausea or vomiting. No bloody stools. He does report a history of heart disease, heart attack and stents in 2003. Sees his marketing analytics analyst yearly. He also reports abnormal heart rhythm, sounds like AFib based on the description. Is anticoagulated on warfarin. He reports his marketing analytics analyst adjusted some medicines back in October but nothing recently. He did see his primary care physician a couple of weeks ago and was started on a nasal spray for rhinitis. It looks as though he specifically made the appointment for concerns with nasal congestion related to his CPAP with difficulty breathing overnight. He did not complain of any chest pain in that encounter per the physician documentation and that does seem consistent with what the patient is reporting to me at this time. He had routine blood work to check in on the conditions that were evaluated that visit like his A1c and INR, did not have more extensive blood work as it would not have been pertinent to that visit. I reviewed his cardiology note from last October. It appears as though his EF was mildly reduced at around 50% with some mild aortic stenosis, mildly enlarged left atrium. At that visit, his digoxin and amlodipine were stopped, metoprolol and lisinopril were increased. SGLT2I was considered but was cost prohibitive per Cardiology. Patient has not tried any interventions at home to help with symptoms besides Rolaids which he did not find beneficial. Past medical history is notable for heart failure class to, EF 50%, atrial fibrillation, obesity, spinal stenosis, type 2 diabetes, with insulin start this past year and improvement of A1c from nearly 12 down to 6 and half. Pertinent medications metoprolol and lisinopril as prescribed, glimepiride, nightly insulin, warfarin simvastatin Surgical history notable for cardiac stents as described above he also reports prior cholecystectomy. ROS is notable for chest pain, abdominal bloating, nocturnal dyspnea with what seems like orthopnea as described above. Otherwise patient denies times 12 systems. <Liya Alvarez MD - Last Filed: 07/26/25 23:58> Related Data Home medications: Home Medications ?Medication ?Instructions ?Recorded ?Confirmed cholecalciferol (vitamin D3) 25 1,000 unit PO DAILY 04/26/22 07/23/25 mcg (1,000 unit) tablet latanoprost 0.005 % eye drops 1 drp ophthalmic (eye) .Bedtime 04/26/22 07/23/25 lisinopril 40 mg tablet 40 mg PO QDAY 12/09/24 07/23/25 metoprolol succinate 200 mg 200 mg PO DAILY 12/09/24 07/23/25 tablet,extended release 24 hr Previous Rx's ?Medication ?Instructions ?Recorded Blood Glucose Meter #1 ea 12/10/24 Diabetic Test Strips #100 ea 12/10/24 lancing device (lancing device #1 ea 12/10/24 with lancets) pen needle, diabetic 30 gauge x #100 ea 12/10/24 5/16 (Pen Needle) simvastatin 20 mg tablet 20 mg PO QHS #90 tabs 12/17/24 omeprazole 20 mg capsule,delayed 20 mg PO DAILY #90 caps 12/31/24 release blood-glucose sensor (FreeStyle #6 ea 01/13/25 Erlin 3 Plus Sensor device) blood-glucose sensor (FreeStyle #2 ea 03/19/25 Erlin 3 Plus Sensor device) insulin glargine 100 unit/mL (3 40 unit (0.4 mL) subcut QAM #37.5 04/09/25 mL) subcutaneous pen (Lantus mL Solostar U-100 Insulin) glimepiride 4 mg tablet 8 mg (2 x 4 mg) PO QDAY #180 tabs 06/04/25 warfarin 5 mg tablet 5 mg PO .UD #90 tabs 06/25/25 lancets 30 gauge (OneTouch Delica #100 ea 07/01/25 Plus Lancet) ipratropium bromide 42 mcg (0.06 2 spray intranasal TID #15 mL 07/06/25 %) nasal spray furosemide 40 mg tablet 40 mg PO DAILY #90 tabs 07/23/25 <Liya Alvarez MD - Last Filed: 07/26/25 23:58> Allergies/adverse reactions: Allergies Allergy/AdvReac Type Severity Reaction Status Date / Time doxycycline Allergy Severe Hives Verified 07/23/25 10:02 atorvastatin AdvReac Unknown Joint Pain Verified 07/23/25 10:02 <Liya Alvarez MD - Last Filed: 07/26/25 23:58> [facility] Medical History: Medical History Arteriosclerotic cardiovascular disease ?I25.10 - Atherosclerotic heart disease of [place] coronary artery without angina pectoris (ICD-10) Spinal stenosis of lumbar region ?M48.061 - Spinal stenosis, lumbar region without neurogenic claudication (ICD-10) Atrial fibrillation ?I48.91 - Unspecified atrial fibrillation (ICD-10) Primary hypertension ?I10 - Essential (primary) hypertension (ICD-10) Mixed hyperlipidemia ?E78.2 - Mixed hyperlipidemia (ICD-10) Chronic combined systolic and diastolic congestive heart failure, NYHA class 2 ?I50.42 - Chronic combined systolic (congestive) and diastolic (congestive) heart failure (ICD-10) Obstructive sleep apnea ?G47.33 - Obstructive sleep apnea (adult) (pediatric) (ICD-10) GERD (gastroesophageal reflux disease) ?K21.9 - Gastro-esophageal reflux disease without esophagitis (ICD-10) Type 2 diabetes mellitus, with long-term current use of insulin ?E11.9 - Type 2 diabetes mellitus without complications (ICD-10) ?Z79.4 - custodial (current) use of insulin (ICD-10) <Liya Alvarez MD - Last Filed: 07/26/25 23:58> Surgical History: Surgical History Status post implantation of automatic cardioverter/defibrillator (AICD) ?Z95.810 - Presence of automatic (implantable) cardiac defibrillator (ICD-10) Status post tonsillectomy ?Z90.89 - Acquired absence of other organs (ICD-10) Status post coronary artery stent placement ?Z95.5 - Presence of coronary angioplasty implant and graft (ICD-10) Status post cholecystectomy ?Z90.49 - Acquired absence of other specified parts of digestive tract (ICD-10) Status post cataract extraction ?Z98.49 - Cataract extraction status, unspecified eye (ICD-10) Status post carpal tunnel release ?Z98.890 - Other specified postprocedural states (ICD-10) Status post cardiac pacemaker procedure ?Z95.0 - Presence of cardiac pacemaker (ICD-10) <Liya Alvarez MD - Last Filed: 07/26/25 23:58> Family History: Family History Father Heart disease Mother Heart disease Sister Heart disease <Liya Alvarez MD - Last Filed: 07/26/25 23:58> Social History: Social History Narrative: , Former smoker, rare EtOH, retired What is your current living situation?: I presently have a place to live Problems where you live: no known problems In the past 12 months, utilities in danger of being shut off: no In past 12 months, lack of transportation kept you from medical appts, meetings, work, or getting things needed for daily living: no In the past 12 mos, have been you worried that your food would run out before you had money to buy more?: never true In the past 12 mos, the food you bought just didn't last and you didn't have money to buy more?: never true Smoking Status: Former smoker What tobacco products do you use: cigarettes Smoking quit date/years: >15 years ago Do you use any of these nicotine containing products: None Second hand tobacco smoke exposure: No How often do you have a drink containing alcohol: monthly or less How often do you have six or more drinks on one occasion: Never AUDIT-C Alcohol total score: 1 Non-prescribed substance use: denies use How often does anyone, including family, friends and others, physically hurt you: never How often does anyone, including family, friends and others, insult or talk down to you: never How often does anyone, including family, friends and others, threaten you with harm: never How often does anyone, including family, friends and others, scream or curse at you: never <Liya Alvarez MD - Last Filed: 07/26/25 23:58> Exam Const: Vital Signs, click to edit/add: Vital Signs - 24 hr 07/20/25 06:28 07/20/25 07:02 07/20/25 07:32 Temperature 97.8 F Pulse Rate 69 70 Pulse Rate [Pulse Oximeter] 83 Respiratory Rate 18 17 15 Blood Pressure 139/93 H 137/89 Blood Pressure [Ri ght Upper Arm] 162/107 H Pulse Oximetry 95 96 95 Oxygen Delivery Me thod Room Air 07/20/25 08:01 07/20/25 08:30 07/20/25 08:32 Temperature Pulse Rate 67 65 68 Pulse Rate [Pulse Oximeter] Respiratory Rate 24 16 Blood Pressure 148/102 H 143/107 H Blood Pressure [Ri ght Upper Arm] Pulse Oximetry 94 97 93 Oxygen Delivery Me thod 07/20/25 09:15 07/20/25 09:42 Temperature Pulse Rate 73 76 Pulse Rate [Pulse Oximeter] Respiratory Rate 21 Blood Pressure 134/99 H Blood Pressure [Ri ght Upper Arm] Pulse Oximetry 94 96 Oxygen Delivery Me thod <Liya Alvarez MD - Last Filed: 07/26/25 23:58> Vital Signs, click to edit/add: Vital Signs - 24 hr 07/20/25 06:28 07/20/25 07:02 07/20/25 07:32 Temperature 97.8 F Pulse Rate 69 70 Pulse Rate [Pulse Oximeter] 83 Respiratory Rate 18 17 15 Blood Pressure 139/93 H 137/89 Blood Pressure [Ri ght Upper Arm] 162/107 H Pulse Oximetry 95 96 95 Oxygen Delivery Me thod Room Air 07/20/25 08:01 07/20/25 08:30 07/20/25 08:32 Temperature Pulse Rate 67 65 68 Pulse Rate [Pulse Oximeter] Respiratory Rate 24 16 Blood Pressure 148/102 H 143/107 H Blood Pressure [Ri ght Upper Arm] Pulse Oximetry 94 97 93 Oxygen Delivery Me thod 07/20/25 09:15 07/20/25 09:42 Temperature Pulse Rate 73 76 Pulse Rate [Pulse Oximeter] Respiratory Rate 21 Blood Pressure 134/99 H Blood Pressure [Ri ght Upper Arm] Pulse Oximetry 94 96 Oxygen Delivery Me thod <Tavares Grissom MD - Last Filed: 07/20/25 11:05> Documenting provider has reviewed patient's vital signs: yes <Liya Alvarez MD - Last Filed: 07/26/25 23:58> Common normals: no apparent distress and alert <Liya Alvarez MD - Last Filed: 07/26/25 23:58> General appearance: cooperative <Liya Alvarez MD - Last Filed: 07/26/25 23:58> Other: Able to speak in full sentences. Appears well nourished and well hydrated. <Liya Alvarez MD - Last Filed: 07/26/25 23:58> HENMT: Common normals: normocephalic, moist oral mucous membranes and oropharynx normal <Liya Alvarez MD - Last Filed: 07/26/25 23:58> Head and scalp: normocephalic <Liya Alvarez MD - Last Filed: 07/26/25 23:58> Face and sinus: normal facial exam <Liya Alvarez MD - Last Filed: 07/26/25 23:58> Mouth: oral and palatal mucosa normal <Liya Alvarez MD - Last Filed: 07/26/25 23:58> Throat: posterior oropharynx normal <MD Georgina Means Last Filed: 07/26/25 23:58> Eye: Common normals: conjunctivae normal <MD Georgina Means Last Filed: 07/26/25 23:58> General eye: normal appearance of both eyes <MD Georgina Means Last Filed: 07/26/25 23:58> Conjunctiva: conjunctiva(e) normal <MD Georgina Means Last Filed: 07/26/25 23:58> Neck & C-Spine: Common normals: full ROM and no lymphadenopathy <MD Georgina Means Last Filed: 07/26/25 23:58> General: normal visual inspection <MD Georgina Means Last Filed: 07/26/25 23:58> Other: Cannot assess JVD well due to body habitus and multiple very large skin tags. <MD Georgina Means Last Filed: 07/26/25 23:58> Resp: Common normals: normal respiratory effort and no use of accessory muscles <MD Georgina Means Last Filed: 07/26/25 23:58> Effort & inspection: able to speak in complete sentences <MD Georgina Means Last Filed: 07/26/25 23:58> Other: No obvious crackles but lung sounds are a little decreased in the bases. No wheeze. <MD Georgina Means Last Filed: 07/26/25 23:58> Cardio: Other: Heart rate is regular with no obvious murmur. Heart sounds are a bit distant. No obvious gallop. <MD Georgina Means Last Filed: 07/26/25 23:58> GI: Common normals: Normal to inspection, nondistended, normoactive bowel sounds present, soft to palpation, non-tender and no masses <MD Georgina Means Last Filed: 07/26/25 23:58> Palpation: soft <MD Georgina Means Last Filed: 07/26/25 23:58> Other: Cannot assess liver borders due to body habitus. Does not seem overly distended or bloated. <Liya Alvarez MD - Last Filed: 07/26/25 23:58> Extremity: Other: No obvious pitting edema. Knees, ankles and feet appear grossly normal with no joint effusions, redness or swelling <Liya Alvarez MD - Last Filed: 07/26/25 23:58> Neuro: Common normals: moves all extremities <Liya Alvarez MD - Last Filed: 07/26/25 23:58> Sensorium/orientation: alert <Liya Alvarez MD - Last Filed: 07/26/25 23:58> Speech: speech normal <Liya Alvarez MD - Last Filed: 07/26/25 23:58> Motor exam: strength 5/5 throughout <Liya Alvarez MD - Last Filed: 07/26/25 23:58> Psych: Appearance: grossly normal <Liya Alvarez MD - Last Filed: 07/26/25 23:58> Attitude: engaged <Liya Alvarez MD - Last Filed: 07/26/25 23:58> Insight: insight good <Liya Alvarez MD - Last Filed: 07/26/25 23:58> Judgement: judgment good <Liya Alvarez MD - Last Filed: 07/26/25 23:58> Skin: Common normals: no rashes or lesions noted <Liya Alvarez MD - Last Filed: 07/26/25 23:58> General skin exam: no rashes or lesions noted <Liya Alvarez MD - Last Filed: 07/26/25 23:58> Course Course ED Course: 85-year-old male with chest pain, worse at night and symptoms suggestive of orthopnea. Overall picture is likely indicative of congestive heart failure worsening. Notes reviewed from last cardiology visit. Preserved EF noted at that time. Will obtain EKG, chest x-ray, typical cardiac and abdominal labs. If this is suggestive of heart failure, would benefit from repeat echo, diuretic. Uncertain if he would require hospitalization at this time as he is not hypoxic. Will await findings. <Liya Alvarez MD - Last Filed: 07/26/25 23:58> Reevaluation(s) Time of Reevaluation #1: 09:56 <Tavares Grissom MD - Last Filed: 07/20/25 11:05> Reevaluation #1: Re-evaluation for the patient, after I reviewed the data from the previous doctor, along with troponins x2 that are negative, elevated BMP. He gives a history of unable to lay flat, having to sit in a chair and at times feeling like he can not catch his breath, he will walk around and feel much better with this. His exercise tolerance really has not changed he denies any significant chest pain associated with this. He does have a history of coronary artery stenting, and greater than 1 year history of previous testing for this. He has not followed up with Cardiology, he is not on any diuretics associated for congestive heart failure. Blood pressure here is remains stable, respiratory rate is remain stable also his oxygen saturation has remained stable. 134/99, pulse is 76 and regular, respiratory rate is 21 temperature 97.8? pulse 96% on room air. He has some crackles in his bases bilaterally, JVP is slightly elevated. Heart sounds no clicks murmurs or gallops I do think from history this is likely related to some congestive heart failure, I checked his labs electrolytes, they were normal. I think he would benefit for some Lasix and we will give him IV 40 mg of Lasix and he may need to go out on Lasix and then follow-up with his doctor and likely further Cardiology. I can see from a [facility] note, he followed up with Cardiology last in October. EF is chronically at 45%. Is in chronic atrial fibrillation, and anticoagulated. <Tavares Grissom MD - Last Filed: 07/20/25 11:05> Time of Reevaluation #2: 11:03 <Tavares Grissom MD - Last Filed: 07/20/25 11:05> Reevaluation #2: Patient doing well, I discussed with his primary care physician we will put him on some Lasix, 20 mg a day, get follow-up later in the week, and further imaging such as an echo or stress echo can be done at that point if he has increasing chest pain shortness of breath with checked discussed with him in detail he will return here to the emergency room. Troponin x2 are negative. <Tavares Grissom MD - Last Filed: 07/20/25 11:05> Vital Signs Vital signs: Initial Vital Signs Temperature 97.8 F 07/20/25 06:28 Temperature Source Temporal Artery Scan 07/20/25 06:28 Pulse Rate 83 07/20/25 06:28 Pulse Rhythm Regular 07/20/25 06:28 Respiratory Rate 18 07/20/25 06:28 Blood Pressure 162/107 H 07/20/25 06:28 Blood Pressure Mean 125 H 07/20/25 06:28 Blood Pressure Position Sitting 07/20/25 06:28 Pulse Oximetry 95 07/20/25 06:28 Oxygen Delivery Method Room Air 07/20/25 06:28 Vital Signs Temperature 97.8 F 07/20/25 06:28 Pulse Rate 83 07/20/25 06:28 Respiratory Rate 18 07/20/25 06:28 Blood Pressure 162/107 H 07/20/25 06:28 Pulse Oximetry 95 07/20/25 06:28 Oxygen Delivery Method Room Air 07/20/25 06:28 Temperature 97.8 F 07/20/25 06:28 Pulse Rate 70 07/20/25 10:00 Respiratory Rate 20 07/20/25 10:00 Blood Pressure 134/99 H 07/20/25 09:42 Pulse Oximetry 97 07/20/25 10:00 Oxygen Delivery Method Room Air 07/20/25 06:28 <Liya Alvarez MD - Last Filed: 07/26/25 23:58> Initial Vital Signs Temperature 97.8 F 07/20/25 06:28 Temperature Source Temporal Artery Scan 07/20/25 06:28 Pulse Rate 83 07/20/25 06:28 Pulse Rhythm Regular 07/20/25 06:28 Respiratory Rate 18 07/20/25 06:28 Blood Pressure 162/107 H 07/20/25 06:28 Blood Pressure Mean 125 H 07/20/25 06:28 Blood Pressure Position Sitting 07/20/25 06:28 Pulse Oximetry 95 07/20/25 06:28 Oxygen Delivery Method Room Air 07/20/25 06:28 Vital Signs Temperature 97.8 F 07/20/25 06:28 Pulse Rate 83 07/20/25 06:28 Respiratory Rate 18 07/20/25 06:28 Blood Pressure 162/107 H 07/20/25 06:28 Pulse Oximetry 95 07/20/25 06:28 Oxygen Delivery Method Room Air 07/20/25 06:28 Temperature 97.8 F 07/20/25 06:28 Pulse Rate 70 07/20/25 10:00 Respiratory Rate 20 07/20/25 10:00 Blood Pressure 134/99 H 07/20/25 09:42 Pulse Oximetry 97 07/20/25 10:00 Oxygen Delivery Method Room Air 07/20/25 06:28 <Tavares Grissom MD - Last Filed: 07/20/25 11:05> Medications Administered Medications: Discontinued Medications Generic Name Dose Route Start Last Admin Trade Name Freq PRN Reason Stop Dose Admin Furosemide 40 mg 07/20/25 09:29 07/20/25 09:38 Furosemide 10 Mg/Ml Inj IVP 07/20/25 09:30 40 mg ONCE ONE Administration <Liya Alvarez MD - Last Filed: 07/26/25 23:58> Discontinued Medications Generic Name Dose Route Start Last Admin Trade Name Freq PRN Reason Stop Dose Admin Furosemide 40 mg 07/20/25 09:29 07/20/25 09:38 Furosemide 10 Mg/Ml Inj IVP 07/20/25 09:30 40 mg ONCE ONE Administration <Tavares Grissom MD - Last Filed: 07/20/25 11:05> Medical Decision Making Lab Data Labs: Lab Results 07/20/25 07/20/25 07/20/25 Range/Units 06:59 07:02 09:00 WBC 7.10 (4.50-11.00) K/uL RBC 5.51 (4.30-5.90) m/uL Hgb 17.3 (13.5-17.5) gm/dL Hct 49.9 (37.0-53.0) % MCV 91 (80-100) fL MCH 31 (26-34) pg MCHC 35 (32-36) gm/dL RDW Coeff of Lynette 12.7 (11.5-15.5) % Plt Count 224 (140-440) K/uL Neut % (Auto) 51.6 (42.0-72.0) % Lymph % (Auto) 37.7 (20-44) % [place] % (Auto) 7.7 (0.0-11.0) % Eos % (Auto) 2.5 (0.0-7.0) % Baso % (Auto) 0.4 (0.0-3.0) % Neut # (Auto) 3.65 (1.7-7.0) K/uL Lymph # (Auto) 2.68 (0.90-2.90) K/uL [place]lan # (Auto) 0.50 (0.00-0.90) K/UL Eos # (Auto) 0.18 (0.00-0.50) K/uL Baso # (Auto) 0.03 (0.00-0.30) K/uL Abs Immat Gran (auto) 0.01 (0.00-0.30) K/uL Imm/Tot Granulo (auto) 0.1 % INR 2.12 H (0.91-1.10) Sodium 138 (135-149) mmol/L Potassium 5.1 (3.6-5.1) mmol/L Chloride 104 (96-114) mmol/L Carbon Dioxide 26 (20-32) mmol/L Anion Gap 8 (7-15) mEq/L BUN 22 (7-30) mg/dL Creatinine 1.0 (0.5-1.5) mg/dL Estimated Creat Clear 50.49 Estimated GFR 74 ml/min Glucose 128 H (60-115) mg/dL Calcium 9.6 (8.4-10.6) mg/dL Total Bilirubin 1.9 H (0.1-1.5) mg/dL AST 53 H (12-35) U/L ALT 35 (4-50) U/L Alkaline Phosphatase 76 (40-150) U/L Troponin I 0.02 (0.01-0.04) ng/mL C-Reactive Protein < 0.5 L (0.5-1.0) mg/dL NT-Pro-B Natriuret Pep 1330 H (See Note) pg/mL Total Protein 7.3 (6.0-8.3) g/dL Albumin 4.2 (3.3-5.0) g/dL Lipase 152 (23-300) U/L POC Troponin I 0.02 0.01 (0.01-0.04) ng/ml <Liya M Storlie, MD - Last Filed: 07/26/25 23:58> Lab Results 07/20/25 07/20/25 07/20/25 Range/Units 06:59 07:02 09:00 WBC 7.10 (4.50-11.00) K/uL RBC 5.51 (4.30-5.90) m/uL Hgb 17.3 (13.5-17.5) gm/dL Hct 49.9 (37.0-53.0) % MCV 91 (80-100) fL MCH 31 (26-34) pg MCHC 35 (32-36) gm/dL RDW Coeff of Lynette 12.7 (11.5-15.5) % Plt Count 224 (140-440) K/uL Neut % (Auto) 51.6 (42.0-72.0) % Lymph % (Auto) 37.7 (20-44) % [place] % (Auto) 7.7 (0.0-11.0) % Eos % (Auto) 2.5 (0.0-7.0) % Baso % (Auto) 0.4 (0.0-3.0) % Neut # (Auto) 3.65 (1.7-7.0) K/uL Lymph # (Auto) 2.68 (0.90-2.90) K/uL [place]lan # (Auto) 0.50 (0.00-0.90) K/UL Eos # (Auto) 0.18 (0.00-0.50) K/uL Baso # (Auto) 0.03 (0.00-0.30) K/uL Abs Immat Gran (auto) 0.01 (0.00-0.30) K/uL Imm/Tot Granulo (auto) 0.1 % INR 2.12 H (0.91-1.10) Sodium 138 (135-149) mmol/L Potassium 5.1 (3.6-5.1) mmol/L Chloride 104 (96-114) mmol/L Carbon Dioxide 26 (20-32) mmol/L Anion Gap 8 (7-15) mEq/L BUN 22 (7-30) mg/dL Creatinine 1.0 (0.5-1.5) mg/dL Estimated Creat Clear 50.49 Estimated GFR 74 ml/min Glucose 128 H (60-115) mg/dL Calcium 9.6 (8.4-10.6) mg/dL Total Bilirubin 1.9 H (0.1-1.5) mg/dL AST 53 H (12-35) U/L ALT 35 (4-50) U/L Alkaline Phosphatase 76 (40-150) U/L Troponin I 0.02 (0.01-0.04) ng/mL C-Reactive Protein < 0.5 L (0.5-1.0) mg/dL NT-Pro-B Natriuret Pep 1330 H (See Note) pg/mL Total Protein 7.3 (6.0-8.3) g/dL Albumin 4.2 (3.3-5.0) g/dL Lipase 152 (23-300) U/L POC Troponin I 0.02 0.01 (0.01-0.04) ng/ml <Tavares Grissom MD - Last Filed: 07/20/25 11:05> Imaging Data Chest x-ray: Attestation: I have reviewed the pertinent imaging results. <Liya Alvarez MD - Last Filed: 07/26/25 23:58> My impression: Cardiomegaly but no obvious pleural effusion. Some mild vascular congestion. <Liya Alvarez MD - Last Filed: 07/26/25 23:58> Radiologist's impression: FINDINGS: Cardiovascular and mediastinum: Cardiomegaly is stable. Mediastinum is stable. Left chest wall ICD with leads in the right shoulder appendage and right ventricle. Lungs and pleural spaces: Lungs are clear. No pneumothorax or pleural effusion. Bones and soft tissues: No significant findings. IMPRESSION: No acute findings. Dictated by Alicja Carbajal MD @ 07/20/2025 7:35:42 AM (Electronically Signed) <Liya Alvarez MD - Last Filed: 07/26/25 23:58> ECG Data Attestation: I personally reviewed and interpreted this ECG as follows: <Liya Alvarez MD - Last Filed: 07/26/25 23:58> Prior ECG tracings: available for review <Liya Alvarez MD - Last Filed: 07/26/25 23:58> Interpretation: Atrial fibrillation with several PVCs present. Inversion of the T-waves in the lateral leads. [place] normal. QRS and ST intervals appear relatively normal. Appears unchanged from 05/26/2022 <Liya Alvarez MD - Last Filed: 07/26/25 23:58> Discharge Plan Discharge Clinical Impression: Orthopnea, History of atherosclerotic heart disease, Congestive heart failure <Liya Alvarez MD - Last Filed: 07/26/25 23:58> Patient Disposition: Home w/ Parent or Adult <Liya Alvarez MD - Last Filed: 07/26/25 23:58> Condition: Improved <Liya Alvarez MD - Last Filed: 07/26/25 23:58> Instructions: Pulmonary Edema (ED), Dyspnea (ED) <Liya Alvarez MD - Last Filed: 07/26/25 23:58> Additional Instructions: Home rest use of diuretics as I directed, follow-up later in the week with Dr. Garcia he will schedule you for further testing or seeing the marketing analytics analyst again, return to the ER increasing shortness of breath, inability to function, or chest pain. I spoke to Dr. Garcia about this, and he was in agreement and will see later in the week. Follow up appointment is scheduled at the [facility] on 07/23 with a 10am appointment time. <Liya Alvarez MD - Last Filed: 07/26/25 23:58> Activity Level: Light activity <Liya Alvarez MD - Last Filed: 07/26/25 23:58> Light activity <Tavares Grissom MD - Last Filed: 07/20/25 11:05> Discharge Diet: Heart Healthy (2 gm sodium, low fat) and 2000 ml Fluid Restriction <Liya Alvarez MD - Last Filed: 07/26/25 23:58> Heart Healthy (2 gm sodium, low fat) and 2000 ml Fluid Restriction <Tavares Grissom MD - Last Filed: 07/20/25 11:05> Prescriptions: No Action cholecalciferol (vitamin D3) 25 mcg (1,000 unit) tablet 1,000 unit PO DAILY latanoprost 0.005 % drops 1 drp ophthalmic (eye) .Bedtime lisinopril 40 mg tablet 40 mg PO QDAY Patient Comments: [NO ORIGINAL SIG] metoprolol succinate 200 mg tablet extended release 24 hr 200 mg PO DAILY (DME) Blood Glucose Meter Mis See Rx Instructions .ROUTE .MEDSUPPLY Qty: 1 0RF Rx Instructions: As directed (DME) Diabetic Test Strips Mis See Rx Instructions .ROUTE .MEDSUPPLY Qty: 100 3RF Rx Instructions: As directed (DME) lancing device [lancing device with lancets] Mis See Rx Instructions .ROUTE .MEDSUPPLY Qty: 1 0RF Rx Instructions: As directed (DME) pen needle, diabetic [Pen Needle] 30 gauge x 5/16 needle See Rx Instructions .ROUTE .MEDSUPPLY Qty: 100 3RF Rx Instructions: Injects daily ipratropium bromide 42 mcg (0.06 %) spray,non-aerosol 2 spray intranasal TID Qty: 15 5RF Rx Instructions: administer into each nostril (DME) FreeStyle Erlin 3 Plus Sensor Device See Rx Instructions .Route Qty: 2 5RF Rx Instructions: As directed furosemide 40 mg tablet 40 mg PO DAILY Qty: 90 0RF simvastatin 20 mg tablet 20 mg PO QHS Qty: 90 3RF omeprazole 20 mg capsule,delayed release(DR/EC) 20 mg PO DAILY Qty: 90 3RF (DME) FreeStyle Erlin 3 Plus Sensor Device See Rx Instructions .Route Qty: 6 3RF Rx Instructions: As directed insulin glargine [Lantus Solostar U-100 Insulin] 100 unit/mL (3 mL) insulin pen 40 unit subcut QAM Qty: 37.5 1RF glimepiride 4 mg tablet 8 mg PO QDAY Qty: 180 3RF warfarin 5 mg tablet 5 mg PO .UD Qty: 90 0RF Protocol: Dose Management Condition: Sunday Dose/Route: 5 mg Instruction: 1 x 5 mg tablet Condition: Sunday Dose/Route: 5 mg Instruction: 1 x 5 mg tablet Condition: Sunday Dose/Route: 5 mg Instruction: 1 x 5 mg tablet Condition: Sunday Dose/Route: 5 mg Instruction: 1 x 5 mg tablet Condition: Dose/Route: 5 mg Instruction: 1 x 5 mg tablet Condition: Sunday Dose/Route: 5 mg Instruction: 1 x 5 mg tablet Condition: Sunday Dose/Route: 5 mg Instruction: 1 x 5 mg tablet Protocol Text: Adjustment Start Date: 07/16/25 INR Value: 1.8 INR Date: 07/14/25 Recheck Date: 07/30/25 Rx Instructions: 5mg daily (DME) lancets [OneTouch Delica Plus Lancet] 30 gauge misc See Rx Instructions .Route Qty: 100 3RF Rx Instructions: As directed <Liya Alvarez MD - Last Filed: 07/26/25 23:58> Follow Up/Referrals: Sammy Garcia MD [Primary Care Provider, Family Practice] <Liya Alvarez MD - Last Filed: 07/26/25 23:58> Stand Alone Forms: [facility] Info Instructions <Liya Alvarez MD - Last Filed: 07/26/25 23:58>
[2025-07-20 07:20] LABS: Hematocrit* 49.9 % (37.0-53.0); Hemoglobin* 17.3 gm/dL (13.5-17.5); Immature Granulocytes Abs Auto 0.01 K/uL (0.00-0.30); Immature Granulocytes Pct Auto 0.1 %; Lymphocytes Absolute Auto 2.68 K/uL (0.90-2.90); Mean Corpuscular HGB Conc 35 gm/dL (32-36); Mean Corpuscular Hemoglobin 31 pg (26-34); Mean Corpuscular Volume 91 fL (80-100); RDW Coefficient of Variation % 12.7 % (11.5-15.5); Red Blood Count* 5.51 m/uL (4.30-5.90); White Blood Count* 7.10 K/uL (4.50-11.00)
[2025-07-20 07:24] LABS: Slide Review Reflex No
[2025-07-20 07:33] LABS: Troponin, Point-of-Care* 0.02 ng/ml (0.01-0.04)
[2025-07-20 07:42] LABS: INR 2.12 (0.91-1.10); Prothrombin Time 24.9 Seconds
[2025-07-20 08:08] LABS: Albumin* 4.2 g/dL (3.3-5.0); Chloride* 104 mmol/L (96-114); Potassium* 5.1 mmol/L (3.6-5.1); Sodium* 138 mmol/L (135-149)
[2025-07-20 08:10] LABS: Blood Urea Nitrogen* 22 mg/dL (7-30); Creatinine* 1.0 mg/dL (0.5-1.5); Est. Creatinine Clearance* 50.49; Estimated Glomerular Filt Rate 74 ml/min
[2025-07-20 08:11] LABS: Alanine Aminotransferase* 35 U/L (4-50); Alkaline Phosphatase* 76 U/L (40-150); Anion Gap 8 mEq/L (7-15); Aspartate Amino Transferase* 53 U/L (12-35); Bilirubin Total* 1.9 mg/dL (0.1-1.5); Calcium* 9.6 mg/dL (8.4-10.6); Carbon Dioxide* 26 mmol/L (20-32); Glucose* 128 mg/dL (60-115); Total Protein* 7.3 g/dL (6.0-8.3)
[2025-07-20 08:21] LABS: NT Pro B Type NatriureticPept* 1330 pg/mL (See Note)
[2025-07-20 09:08] LABS: Troponin, Point-of-Care* 0.01 ng/ml (0.01-0.04)
[2025-07-20] MEDS: FUROSEMIDE 10 MG/ML inj 40 MG IVP (09:38)
== END 2025-07-20 11:10 | disposition home or self-care (01) ==
PROVIDERS: Family Medicine; Emergency Provider Family Medicine; PCP Family Medicine
DX: R06.01 Orthopnea (principal); I50.9 Heart failure, unspecified; I48.20 Chronic atrial fibrillation, unspecified; Z79.01 Long term (current) use of anticoagulants; Z86.79 Personal history of other diseases of the circulatory system
CPT/HCPCS: 36415; 71046; 80053; 81003; 83690; 83880; 84484; 85025; 85610; 86140; 93005; 99284; 99285; J1938

== ENCOUNTER 2025-08-04 07:25 | Outpatient (CLI) | payer MEDICARE, OTHER, SELFPAY ==
[2025-08-04] MEDS: REGADENOSON 0.4 MG/5 ML SYRINGE IVP (09:02)
[2025-08-04 09:34] VITALS: BP 148/72; PULSE 90; RESP 20; O2SAT 96
--- NOTE | 2025-08-04 12:21 | P.STN_ITS ---
Stress Test Note Date Date of test: 08/04/25 Providers Primary care provider: Sammy Garcia Stress test physician: Tavares Grissom Stress Test Note Stress test ordered: Lexiscan Indication for test: Heart failure Stress test medicine: Lexiscan Results discussion: Patient is a very nice gentleman who presents for the above test after discussion the risks benefits and side effects he would like to proceed, pretest EKG shows atrial fibrillation with controlled rate of 92, blood pressure 1 30- 184. ST wave flattening is noted laterally and inferiorly, standard infusion of Lexiscan is done, this is done over a 5 minute period, patient was able to walk on the treadmill, he did have any symptoms during this time. He did become tachycardic, up to 172, with occasional PVCs. He was asymptomatic during this, and recovered normally. No acute ST wave changes are noted from his a normal abnormal baseline. Impression: Negative subjective objective electrographic portion of Lexiscan, abnormal baseline EKG Follow up suggested: Await nuclear imaging results, this will be read by nuclear Medicine, clinical correlation with these will be needed. Patient had no complications left this testing facility in good condition.
== END 2025-08-04 07:26 | disposition home or self-care (01) ==
LOC: STRESS 07:27
PROVIDERS: PCP Family Medicine; Visit Provider Family Medicine
DX: I50.42 Chronic combined systolic (congestive) and diastolic (congestive) heart failure (principal); I25.9 Chronic ischemic heart disease, unspecified; I21.3 ST elevation (STEMI) myocardial infarction of unspecified site
CPT/HCPCS: 78452; 93016; 93017; A9500; J2785

== ENCOUNTER 2025-08-05 09:48 | Outpatient (CLI) | payer MEDICARE, OTHER, SELFPAY ==
[2025-08-05] MEDS: PERFLUTREN LIPID MICROSPHERES 2 ML VIAL IVP (10:36)
--- NOTE | 2025-08-05 10:46 | PC.NURSE ---
20G IV placed in right AC. Definity given per environmental technical officer instruction. IV removed intact once test completed.
== END 2025-08-05 09:49 | disposition home or self-care (01) ==
LOC: RAD 09:48
PROVIDERS: PCP Family Medicine; Visit Provider Family Medicine
DX: I50.9 Heart failure, unspecified (principal); I51.7 Cardiomegaly; I35.0 Nonrheumatic aortic (valve) stenosis
CPT/HCPCS: 93306; Q9957

== ENCOUNTER 2025-08-18 10:45 | Outpatient (CLI) | payer MEDICARE, OTHER, SELFPAY | END 2025-08-18 10:46 | disposition home or self-care (01) | LOC: NFLDREF 08-21 13:17 | PROVIDERS: PCP Family Medicine; Referring Provider Family Medicine; Visit Provider Family Medicine | DX: Z79.01 Long term (current) use of anticoagulants (principal); I48.91 Unspecified atrial fibrillation | CPT/HCPCS: 85610 ==